=== PATIENT | male | born 1975 | race Caucasian/White ===

== ENCOUNTER 2020-01-11 08:33 | Outpatient (NON) | payer OTHER, SELFPAY ==
[2020-01-11 14:32] LABS: Influenza Control Positive
== END 2020-01-11 08:34 ==
LOC: ANHCOVIDDT 08:34
PROVIDERS: PCP Family Medicine; Visit Provider Nurse Practitioner Family
DX: J06.9 Acute upper respiratory infection, unspecified (principal); Z20.828 Contact with and (suspected) exposure to other viral communicable diseases
CPT/HCPCS: 87804

== ENCOUNTER 2020-01-11 12:53 | Outpatient (CLI) | payer OTHER, SELFPAY ==
--- NOTE | ~2020-01-11 | XR_ITS ---
EXAMINATION: XR chest 2V EXAM DATE: 01/11/2020 13:20 INDICATION: Cough, chills, congestion. Shortness of breath. History asthma. TECHNIQUE: Frontal and lateral projections of the chest obtained and reviewed. Comparison is made to prior examination from 04/07/2018. FINDINGS: The lungs are clear. There are no pleural effusions. The cardiomediastinal silhouette is within normal limits. There is no pneumothorax suspected. The bones and soft tissues are unremarkab le. IMPRESSION: No acute cardiopulmonary findings. Reviewed, dictated and finalized at location A. IO PRODUCER
== END 2020-01-11 12:54 | disposition home or self-care (01) ==
LOC: ANHIMG 12:58
PROVIDERS: PCP Family Medicine; Visit Provider Nurse Practitioner Family
DX: R05 Cough (principal); J06.9 Acute upper respiratory infection, unspecified
CPT/HCPCS: 71046

== ENCOUNTER 2020-03-26 11:18 | Emergency (ER) | payer BC, SELFPAY ==
--- NOTE | 2020-03-26 11:21 | ED.EXTPRO ---
HPI - Extremity Problem General Chief complaint: Extremity Problem,Nontraumatic Stated complaint: L FOOT PAIN Source: patient and RN notes reviewed Mode of arrival: ambulatory Limitations: no limitations History of Present Illness MD Complaint: extremity pain Related Data Home Medications Medication Instructions Recorded Confirmed bupropion HCl 150 mg 24 hr tablet, 150 mg PO QAM 01/10/20 01/10/20 extended release vortioxetine 20 mg tablet 20 mg PO DAILY 01/10/20 01/10/20 Allergies Allergy/AdvReac Type Severity Reaction Status Date / Time No Known Allergies Allergy Verified 01/10/20 13:40 Review of Systems Review of Systems: Narrative: CONSTITUTIONAL: Denies malaise, chills, sweats, or fever. EYES: Denies visual changes, redness, or discharge. ENT: Denies rhinorrhea, congestion, sinus pain, otalgia or sore throat. CARDIOVASCULAR: Denies chest pain, palpitations, or edema. RESPIRATORY: Denies cough or dyspnea. GASTROINTESTINAL: Denies abdominal pain, nausea, vomiting, diarrhea, bloody, or mucous stools. GENITOURINARY: Denies dysuria or hematuria. SKIN: Denies rash or itching. MUSCULOSKELETAL: Denies back pain, joint pain, or myalgia. NEUROLOGIC: Denies numbness, weakness, or headache. PSYCHIATRIC: Denies anxiety or depression. All systems reviewed & are unremarkable except as noted in HPI and below PMFSH Family History Family History Mother Hypertension Diabetes mellitus Arthritis Asthma Skin cancer Father Cerebrovascular accident Heart disease Grandparent Family history of malignant neoplasm Sibling Cerebrovascular accident Diabetes mellitus Social History Social History Smoking status: Never smoker Alcohol intake: current Comments At time of signature, agree with nursing past medical, surgical, social and family history. There is no relevant family history pertinent to the presenting complaint Exam Narrative: Exam Narrative: GENERAL: Well-appearing, well-nourished, and in no acute distress. HEAD: Normocephalic, atraumatic. EYES: PERRLA, conjunctivae clear NECK: Supple. CHEST: Speaks in full sentences. No respiratory distress. HEART: Regular rate and rhythm. Normal and equal peripheral pulses. EXTREMITIES: [Xxx] has normal strength and sensation, normal range of motion. No edema or ecchymosis. 5/5 strength with [xxx] flexion and extension. Normal sensation with sensitivity to light touch and pain. No point tenderness. No open wounds, no skin tenting, no devitalized tissue or atrophy, no trophic changes, no obvious deformity, alignment normal, nearby joints and structures intact. Distal pulses palpable and equal bilaterally, skin warm, dry, pink. Capillary refill less than 3 seconds. SKIN: Warm, dry, no rash. NEURO: Alert and oriented x3. PSYCH: Normal mood and affect Course Course Emergency Course: Patient is aware of diagnosis, understands and agrees to treatment plan. Anticipatory guidance given. Patient agrees to follow-up as directed and is aware of reasons to seek care at the emergency department. Portions of this record may have been created with voice recognition software Vital Signs Vital signs: Reviewed. MDM - Extremity (Nontraumatic) MDM Narrative Medical decision making narrative: Patients pain is consistent with musculoskeletal etiology. No signs of neurological or vascular compromise on exam. Compartments and tissues are soft without signs of compartment syndrome. Pain is felt appropriate for further evaluation on an outpatient basis. Critical Care Time Critical Care Time Critical Care Time: No Discharge Plan Discharge Prescriptions: No Action Trintellix 20 mg tablet 20 mg PO DAILY RF: 0 bupropion HCl [Wellbutrin XL] 150 mg tablet extended release 24 hr 150 mg PO QAM RF: 0 azithromycin 250 mg tablet See Rx Instructio
== END 2020-03-26 11:20 | disposition left against medical advice (07) ==
LOC: EXPGLEN 11:28
PROVIDERS: Emergency Provider Nurse Practitioner
DX: Z53.21 Procedure and treatment not carried out due to patient leaving prior to being seen by health care provider (principal)
CPT/HCPCS: 99199

== ENCOUNTER → 2020-06-04 10:28 | Outpatient (CLI) | payer BC, SELFPAY ==
[2020-06-04 18:21] LABS: SARS-CoV-2 RNA PCR Negative
== END ==
PROVIDERS: PCP Family Medicine; Visit Provider Nurse Practitioner Family
DX: R68.89 Other general symptoms and signs (principal); Z20.822 Contact with and (suspected) exposure to COVID-19
CPT/HCPCS: C9803; U0003; U0005

== ENCOUNTER → 2021-02-17 01:12 | Outpatient (CLI) | payer OTHER, SELFPAY ==
[2021-02-17 21:03] LABS: SARS-CoV-2 RNA PCR Positive
== END ==
PROVIDERS: PCP Family Medicine; Visit Provider Physician Assistant Medical
DX: U07.1 COVID-19 (principal)
CPT/HCPCS: C9803; U0003; U0005

== ENCOUNTER 2024-06-29 22:53 | Emergency (ER) | payer OTHER, SELFPAY ==
[2024-06-29] VITALS (9 sets, daily range): BP systolic 97–137; BP diastolic 61–77; PULSE 67–79; RESP 15–26; TEMP 36.5; O2SAT 96–99
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
--- OUTSIDE RECORDS SUMMARY | 2024-06-29 22:56 | XMS_ITS | Patient Health Record ---
Author Organization [facility]ly [facility] Address [address] [place] [address] Care Team Providers Care Child Psychiatrist Name Role Phone Heron Rabago Primary Care Provider [phone] Allergies No Known Allergies Reason For Referral No Information Medications Medication SIG (Take, Route, Frequency, Duration) Notes Start Date End Date Status Citalopram Hydrobromide 40 MG 1 tablet Orally Once a day for 90 days 03/20/2024 Active buPROPion HCl ER (XL) 300 MG 1 tablet in the morning Acti ve Social History Tobacco Use: Social History Observation Description Date Details (start date - stop date) Never Smoker NA - NA Dont use, Tobacco Use/Smoking Question Answer Notes Are you a nonsmoker Tobacco Control (Standard) Question Answer Notes Tobacco use: Nonsmoker Problems Problem Type SNOMED Code ICD Code Onset Dates Problem Status W/U Status Risk Notes Problem Generalized anxiety disorder (22379797) MABLE (generalized anxiety disorder) (F41.1) Active confirmed Problem Major depression single episode, in partial remission (78106525) Major depressive disorder in partial remission (F32.4) Active confirmed Mostly resolved now Problem Single episode of major depression in full remission (19865546) Major depressive disorder in full remission (F32.5) Active confirmed Problem 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 Encounters Encounter Location Date Provider Diagnosis [address] [place] [address] 09/12/2023 Heron Rabago Shift work sleep disorder G47.26 and Major depressive disorder in full remission F32.[address] [place] [address] 03/20/2024 Herondesiree Rabago Major depressive disorder in full remission F32.5 and Shift work sleep disorder G47.[address] [place] [address] 04/17/2024 Herondesiree Rabago Major depressive disorder in full remission F32.5 and Shift work sleep disorder G47.26 Assessments Encounter Date Diagnosis (ICD Code) Assessment Notes Treatment Notes Treatment Clinical Notes Section Notes 09/12/2023 Major depressive disorder in full remission (ICD-10 - F32.5) Client doing well, no treatment plan changes needed. 09/12/2023 Shift work sleep disorder (ICD-10 - G47.26) Client doing well, no treatment plan changes needed. 03/20/2024 Major depressive disorder in full remission (ICD-10 - F32.5) Encouraged client to seek out therapy - given resources for private therapy. Client having a lot of anxiety around dating again. States he feels it is out of porprotion to where it should be. The option of adding a medication to be taken as needed for anxiety, particularly in social situations like dating was discussed. Client would like to increase Lexapro, however Bo is already at 20 mg. Discussed changing Lexapro to Celexa to see if more effective for client. Client is agreeable. Client to f/u in a month. If anxiety is still problematic with ruminations after engaging in therapy and change to Celexa, would consider add on anxiety medication. 04/17/2024 Major depressive disorder in full remission (ICD-10 - F32.5) 04/17/2024 Shift work sleep disorder (ICD-10 - G47.26) 03/20/2024 Shift work sleep disorder (ICD-10 - G47.26) Encouraged client to seek out therapy - given resources for private therapy. Client having a lot of anxiety around dating again. States he feels it is out of porprotion to where it should be. The option of adding a medication to be taken as needed for anxiety, particularly in social situations like dating was discussed. Client would like to increase Lexapro, however Bo is already at 20 mg. Discussed changing Lexapro to Celexa to see if more effective for client. Client is agreeable. Client to f/u in a month. If anxiety is still problematic with ruminations after engaging in therapy and change to Celexa, would consider add on anxiety medication. 09/12/2023 Other Discussed sleep hygiene and caffeine intake with encouragement to limit electronic devices an hour before bed and to limit caffeine after 3:00pm. Exercise benefits for mood and health discussed. Psychoeducation regarding psychiatric illness provided. Client was educated about risks and benefits of medication, alternatives to medication, off label uses of medication, suicidal ideation with SSRIs, self-administrati on and compliance with medication along with how to safely store medication. Verbal informed consent obtained. Client agrees to return sooner if symptoms worsen or if suicidal or homicidal ideations occur. Client has the phone number to the 24-hour crisis line at [facility]. Questions addressed. Client verbalized understanding of all information and is agreeable to treatment plan. Client doing well, no treatment plan changes needed. 03/20/2024 Other Discussed sleep hygiene and caffeine intake with encouragement to limit electronic devices an hour before bed and to limit caffeine after 3:00pm. Exercise benefits for mood and health discussed. Psychoeducation regarding psychiatric illness provided. Client was educated about risks and benefits of medication, alternatives to medication, off label uses of medication, suicidal ideation with SSRIs, self-administrati on and compliance with medication along with how to safely store medication. Verbal informed consent obtained. Client agrees to return sooner if symptoms worsen or if suicidal or homicidal ideations occur. Client has the phone number to the 24-hour crisis line at [facility]. Questions addressed. Client verbalized understanding of all information and is agreeable to treatment plan. Encouraged client to seek out therapy - given resources for private therapy. Client having a lot of anxiety around dating again. States he feels it is out of porprotion to where it should be. The option of adding a medication to be taken as needed for anxiety, particularly in social situations like dating was discussed. Client would like to increase Lexapro, however Bo is already at 20 mg. Discussed changing Lexapro to Celexa to see if more effective for client. Client is agreeable. Client to f/u in a month. If anxiety is still problematic with ruminations after engaging in therapy and change to Celexa, would consider add on anxiety medication. 04/17/2024 Other Discussed sleep hygiene and caffeine intake with encouragement to limit electronic devices an hour before bed and to limit caffeine after 3:00pm. Exercise benefits for mood and health discussed. Psychoeducation regarding psychiatric illness provided. Client was educated about risks and benefits of medication, alternatives to medication, off label uses of medication, suicidal ideation with SSRIs, self-administrati on and compliance with medication along with how to safely store medication. Verbal informed consent obtained. Client agrees to return sooner if symptoms worsen or if suicidal or homicidal ideations occur. Client has the phone number to the 24-hour crisis line at [facility]. Questions addressed. Client verbalized understanding of all information and is agreeable to treatment plan. Plan Of Treatment No Information Insurance Providers Payer Name Payer Address Payer Phone Subscriber Number Group Number Insured Name Patient Relationship to Insured Coverage Start Date Coverage End Date [facility] [address] [place] [address] [id number] Bo Martinez Self - patient is the insured 3 Medical (General) History Surgical History Surgery Date(Month/Year) Foot (left) Hospitalization History Reason Date(Month/Year) MH ([facility]) Asthma
--- OUTSIDE RECORDS SUMMARY | 2024-06-29 23:54 | XMS_ITS | Patient Health Record ---
Author Organization [facility] Address [address] [place] [address] Care Team Providers Care Four Slide Machine Setter Name Role Phone Heron Rabago Primary Care Provider [phone] Allergies No Known Allergies Reason For [...] Status Risk Notes Problem Generalized anxiety disorder (16856395) MABLE (generalized anxiety disorder) (F41.1) Active confirmed Problem Major depression single episode, in partial remission (44792228) Major depressive disorder in partial remission (F32.4) Active confirmed Mostly resolved now Problem Single episode of major depression in full remission (26790820) Major depressive disorder in full remission (F32.5) Active confirmed Problem Circadian rhythm sleep disorder of shift work type (899636764) 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 Questions addressed. Client verbalized understanding of all [...] number to the 24-hour crisis line at [facility]. Questions addressed. Client verbalized understanding of all [...] number to the 24-hour crisis line at [facility]. Questions addressed. Client verbalized understanding of all information and is agreeable to treatment plan. Plan Of Treatment No Information Insurance Providers Payer Name Payer Address Payer Phone Subscriber Number Group Number Insured Name Patient Relationship to Insured Coverage Start Date Coverage End Date [facility] [address] [place] [address] [id number] Bo Martinez Self - patient is the insured 3 Medical (General) History Surgical History Surgery Date(Month/Year) Foot (left) Hospitalization History Reason Date(Month/Year) MH ([facility]) Asthma
[2024-06-30] VITALS (32 sets, daily range): BP systolic 109–126; BP diastolic 67–86; PULSE 60–81; RESP 12–27; O2SAT 94–100
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
[2024-06-30] MEDS: SODIUM CHLORIDE 0.9% IV 1,000 ML 999 ML IV CONT (00:24)
[2024-06-30 00:25] LABS: Basophils Absolute Auto 0.1 K/mm3 (0.0-0.1); Basophils Percent Auto 0.6 % (0.2-1.2); Eosinophils Absolute Auto 0.1 K/mm3 (0-0.3); Eosinophils Percent Auto 1.3 % (0-4.4); Hematocrit 32.3 % (42.0-52.0); Immature Granulocyte Absolute 0.06 K/mm3 (0.00-0.031); Immature Granulocyte Percent A 0.6 % (0-0.5); Lymphocytes Percent Auto 7.5 % (18.3-44.2); Mean Corpuscular HGB Conc 34.1 g/dl (32-36); Mean Corpuscular Hemoglobin 31.5 pg (26-34); Mean Corpuscular Volume 92.6 fl (80-100); Mean Platelet Volume 9.7 fl (7.4-10.4); Monocytes Absolute Auto 0.6 K/mm3 (0.1-0.6); Monocytes Percent Auto 5.8 % (2.6-8.5); Neutrophils Percent Auto 84.2 % (45.5-73.1); Platelet Count Result 217 k/mm3 (150-375); Red Blood Count 3.49 M/mm3 (4.6-6.20); Red Cell Distribution Width 13.3 % (11.5-14.5); White Blood Count 10.6 K/mm3 (4.5-10.0)
[2024-06-30] MEDS: TETANUS,DIPHTHERIA,AC PERTUSSIS ADULT (0.5 ML) BOOSTRIX IM (00:25)
[2024-06-30] MEDS: fentaNYL CITRATE INJ (*CRX) 100 MCG/2 ML VIAL 50 MCG IV PUSH (00:26)
[2024-06-30 00:35] LABS: Lactic Acid Reflex 1.3 mmol/L (0.7-2.0)
[2024-06-30 00:36] LABS: Alanine Aminotransferase 28 U/L (6-50); Albumin Level 3.5 g/dL (3.5-5.1); Alkaline Phosphatase 57 U/L (38-126); Anion Gap 6 mmol/L (4-12); Aspartate Amino Transferase 29 U/L (17-59); Bilirubin,Total 0.2 mg/dL (0.2-1.3); Blood Urea Nitrogen 20 mg/dL (9-20); Calcium 8.2 mg/dL (8.4-10.2); Carbon Dioxide 26 mmol/L (22-30); Chloride 103 mmol/L (98-107); Estimated CRCL calculation 120 ml/min; Estimated Glomerular Filt Rate > 60; Glucose 153 mg/dL (65-110); INR 1.1; Potassium 3.5 mmol/L (3.4-5.0); Prothrombin Time 14.6 Seconds (11.1-14.7); Sodium 135 mmol/L (137-145)
[2024-06-30 00:37] LABS: Partial Thromboplastin Time 23.8 Seconds (22.3-36.8)
[2024-06-30] MEDS: HYDROmorphone HCL INJ (*CRX) 2 MG/ML VIAL 0.5 MG IV PUSH (01:55)
[2024-06-30] MEDS: NACL 0.9% IRRIGATION POUR BOTTLE 500 ML ×2 (03:02)
[2024-06-30] MEDS: BACITRACIN OINTMENT 15 GM TUBE 1 APPLIC (03:02)
[2024-06-30] MEDS: LIDOCAINE 5% PATCH 1 PATCH TRANSDERM (04:12)
[2024-06-30 04:31] LABS: Add Urine Microscopic? NO; Appearance Urine Clear (Clear); Bilirubin Urine Negative (Negative); Blood Urine Negative (Negative); Color Urine Yellow (Yellow); Glucose Urine UA Negative (Negative); Ketones Urine Negative (Negative); Leukocyte Esterase Ur Negative LEU/UL (Negative); Nitrate Urine Negative (Negative); Protein Urine Negative (Negative); Specific Grav Ur > 1.045 (1.001-1.035); pH Urine 5.5 (5.0-9.0)
[2024-06-30 04:47] LABS: Amphetamine Screen Urine Negative (Negative); Barbiturate Screen Urine Negative (Negative); Benzodiazepines Screen Urine Negative (Negative); Cannabinoid Screen Urine Negative (Negative); Cocaine Screen Urine Negative (Negative); Methadone Screen Urine Negative (Negative); Opiate Screen Urine Negative (Negative); Phencyclidine Screen Urine Negative (Negative)
[2024-06-30] MEDS: KETOROLAC 30 MG/ML VIAL (*BKC) 15 MG IM (05:30)
[2024-06-30] MEDS: ACETAMINOPHEN 500 MG TABLET 1000 MG PO (05:30)
== END 2024-06-30 05:53 | disposition home or self-care (01) ==
PROVIDERS: Emergency Provider Student in an Organized Health Care Education/Training Program; PCP Family Medicine
DX: S22.31XA Fracture of one rib, right side, initial encounter for closed fracture (principal); S70.11XA Contusion of right thigh, initial encounter; S60.512A Abrasion of left hand, initial encounter; S60.511A Abrasion of right hand, initial encounter; S80.212A Abrasion, left knee, initial encounter; S80.211A Abrasion, right knee, initial encounter; S90.511A Abrasion, right ankle, initial encounter; D64.9 Anemia, unspecified; Z23 Encounter for immunization; Z79.899 Other long term (current) drug therapy; V28.49XA Other motorcycle driver injured in noncollision transport accident in traffic accident, initial encounter
CPT/HCPCS: 36415; 70450; 71045; 71260; 72125; 72170; 73030; 73120; 73552; 73560; 73600; 73706; 74177; 80053; 80307; 81003; 83605; 85025; 85610; 85730; 90471; 90715; 96361; 96372; 96374; 96375; 99284; A9270; J1171; J1885; J3010; J7030; Q9967

== ENCOUNTER 2024-07-10 11:20 | Outpatient (CLI) | payer OTHER, SELFPAY ==
--- NOTE | ~2024-07-10 | US_ITS ---
EXAMINATION:US venous doppler LE BI INDICATION:Leg swelling TECHNIQUE: Multiple grayscale, color flow and Doppler images of the right and left lower extremity de ep venous systems were obtained and reviewed. COMPARISON:No prior studies for comparison. FINDINGS: The common femoral, superficial femoral and popliteal veins demonstrate normal respiratory variation, augmentation and compressibility. Color flow is also seen within the posterior tibial, pe roneal, greater saphenous and profunda veins. IMPRESSION: 1: No lower extremity deep venous thrombosis. Reviewed, dictated and finalized at location A.
--- OUTSIDE RECORDS SUMMARY | 2024-07-10 11:33 | XMS_ITS | Patient Health Record ---
Author Organization [facility] Address [address] [place] [address] Care Team Providers Care Forming Process Worker Name Role Phone Heron Rabago Primary Care Provider [phone] Allergies No Known Allergies Reason For [...] Status Risk Notes Problem Generalized anxiety disorder (85199395) MABLE (generalized anxiety disorder) (F41.1) Active confirmed Problem Major depression single episode, in partial remission (84424590) Major depressive disorder in partial remission (F32.4) Active confirmed Mostly resolved now Problem Single episode of major depression in full remission (94199369) Major depressive disorder in full remission (F32.5) Active confirmed Problem 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 Questions addressed. Client verbalized understanding of all [...] number to the 24-hour crisis line at [facility]. Questions addressed. Client verbalized understanding of all [...] number to the 24-hour crisis line at [facility]. Questions addressed. Client verbalized understanding of all information and is agreeable to treatment plan. Plan Of Treatment No Information Insurance Providers Payer Name Payer Address Payer Phone Subscriber Number Group Number Insured Name Patient Relationship to Insured Coverage Start Date Coverage End Date [facility] [address] [place] [address] [id number] Bo Martinez Self - patient is the insured 3 Medical (General) History Surgical History Surgery Date(Month/Year) Foot (left) Hospitalization History Reason Date(Month/Year) MH ([place]) Asthma
== END 2024-07-10 11:21 | disposition home or self-care (01) ==
PROVIDERS: PCP Family Medicine; Visit Provider Nurse Practitioner Family
DX: M79.89 Other specified soft tissue disorders (principal)
CPT/HCPCS: 93970

== ENCOUNTER 2024-07-11 09:40 | Outpatient (CLI) | payer OTHER, SELFPAY ==
--- NOTE | ~2024-07-11 | XR_ITS ---
Right ankle Technique: AP, oblique, and lateral views were obtained. Clinical History: Effusion Findings: No acute fracture or dislocation is seen. Osseous alignment is anatomic. Ankle mortise and other visualized joint spaces are preserved. Soft tissues are otherwise unremarkable. Impression: Unremarkable right ankle. Reviewed, dictated and finalized at location . Impression: Unremarkable right ankle.
--- OUTSIDE RECORDS SUMMARY | 2024-07-11 09:51 | XMS_ITS | Patient Health Record ---
Author Organization [facility] Address [address] [place] [address] Care Team Providers Care Journeyman Lineman Name Role Phone Heron Rabago Primary Care Provider Allergies No Known Allergies Reason For Referral [...] Status Risk Notes Problem Generalized anxiety disorder (05754999) MABLE (generalized anxiety disorder) (F41.1) Active confirmed Problem Major depression single episode, in partial remission (15748291) Major depressive disorder in partial remission (F32.4) Active confirmed Mostly resolved now Problem Single episode of major depression in full remission (33109624) Major depressive disorder in full remission (F32.5) Active confirmed Problem Circadian rhythm sleep disorder of shift work type (113356600) 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 Questions addressed. Client verbalized understanding of all [...] number to the 24-hour crisis line at [facility]. Questions addressed. Client verbalized understanding of all [...] number to the 24-hour crisis line at [facility]. Questions addressed. Client verbalized understanding of all information and is agreeable to treatment plan. Plan Of Treatment No Information Insurance Providers Payer Name Payer Address Payer Phone Subscriber Number Group Number Insured Name Patient Relationship to Insured Coverage Start Date Coverage End Date [facility] [address] [place] [address] [id number] Bo Martinez Self - patient is the insured 3 Medical (General) History Surgical History Surgery Date(Month/Year) Foot (left) Hospitalization History Reason Date(Month/Year) MH ([facility]) Asthma
== END 2024-07-11 09:41 | disposition home or self-care (01) ==
PROVIDERS: PCP Family Medicine; Visit Provider Nurse Practitioner Family
DX: M25.471 Effusion, right ankle (principal)
CPT/HCPCS: 73610

== ENCOUNTER 2024-09-25 12:43 | Outpatient (CLI) | payer OTHER, SELFPAY ==
--- OUTSIDE RECORDS SUMMARY | 2024-09-25 12:51 | XMS_ITS | Patient Health Record ---
Author Organization [facility] Address [address] [place] [address] Care Team Providers Care Back Sizer Name Role Phone Heron Rabago Primary Care Provider Allergies No Known Allergies Reason For Referral No Information Medications Medication SIG (Take, Route, Frequency, Duration) Notes Start Date End Date Status Citalopram Hydrobromide 40 MG TAKE 1 TABLET BY MOUTH DAILY; Duration: 90 Active buPROPion HCl ER (XL) 300 MG 1 tablet in the morning; Duration: 90 days Active Social History Tobacco Use: Social History Observation Description Date Details (start date - stop date) Never Smoker NA - NA Dont use, Tobacco Use/Smoking Question Answer Notes Are you a nonsmoker Tobacco Control (Standard) Question Answer Notes Tobacco use: Nonsmoker Problems Problem Type SNOMED Code ICD Code Onset Dates Problem Status W/U Status Risk Notes Problem Generalized anxiety disorder (71181959) MABLE (generalized anxiety disorder) (F41.1) Active confirmed Problem Major depression single episode, in partial remission (87519322) Major depressive disorder in partial remission (F32.4) Active confirmed Mostly resolved now Problem Single episode of major depression in full remission (71202982) Major depressive disorder in full remission (F32.5) Active confirmed Problem Circadian rhythm sleep disorder of shift work type (647562060) 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 Encounters Encounter Location Date Provider Diagnosis [address] [place] [address] 03/20/2024 Heron Rabago Major depressive disorder in full remission F32.5 and Shift work sleep disorder G47.[address] [facility] [place] [address] 04/17/2024 Heron Rabago Major depressive disorder in full remission F32.5 and Shift work sleep disorder G47.[address] [place] [address] 07/24/2024 Heron Rabago Shift work sleep disorder G47.26 and Major depressive disorder in full remission F32.5 Assessments Encounter Date Diagnosis (ICD Code) Assessment Notes Treatment Notes Treatment Clinical Notes Section Notes 03/20/2024 Major depressive disorder in full remission [...] disorder in full remission (ICD-10 - F32.5) 07/24/2024 Major depressive disorder in full remission (ICD-10 - F32.5) 07/24/2024 Shift work sleep disorder (ICD-10 - G47.26) 04/17/2024 Shift work sleep disorder (ICD-10 - [...] Celexa, would consider add on anxiety medication. 03/20/2024 Other Discussed sleep hygiene and caffeine [...] number to the 24-hour crisis line at [facility]. Questions addressed. Client verbalized understanding of [...] number to the 24-hour crisis line at [facility]. Questions addressed. Client verbalized understanding of all information and is agreeable to treatment plan. 07/24/2024 Other Discussed sleep hygiene and caffeine intake [...] number to the 24-hour crisis line at [facility]. Questions addressed. Client verbalized understanding of all information and is agreeable to treatment plan. Plan Of Treatment No Information Insurance Providers Payer Name Payer Address Payer Phone Subscriber Number Group Number Insured Name Patient Relationship to Insured Coverage Start Date Coverage End Date [facility] [address] [place] [address] [id number] Bo Martinez Self - patient is the insured 3 Medical (General) History Surgical History Surgery Date(Month/Year) Foot (left) Hospitalization History Reason Date(Month/Year) Asthma MH ([place])
[2024-09-25 12:59] LABS: Hematocrit 44.0 % (42.0-52.0); Hemoglobin 14.3 g/dL (14.0-18.0); Immature Granulocyte Percent A 0.4 % (0-0.5); Lymphocytes Absolute Auto 1.29 K/mm3 (0.9-3.2); Mean Corpuscular HGB Conc 32.5 g/dl (32-36); Mean Corpuscular Hemoglobin 30.1 pg (26-34); Mean Corpuscular Volume 92.6 fl (80-100); Nucleated Red Blood Cells Absolute Auto 0.000 K/mm3 (0.0-0.012); Nucleated Red Blood Cells Perc 0.0 % (0.0-0.2); Platelet Count Result 239 k/mm3 (150-375); Red Blood Count 4.75 M/mm3 (4.6-6.20); White Blood Count 5.4 K/mm3 (4.5-10.0)
[2024-09-25 15:08] LABS: Anion Gap 6 mmol/L (4-12); Blood Urea Nitrogen 22 mg/dL (9-20); Calcium 9.1 mg/dL (8.4-10.2); Carbon Dioxide 29 mmol/L (22-30); Chloride 104 mmol/L (98-107); Cholesterol 174 mg/dL (0-200); Estimated Glomerular Filt Rate > 60; Glucose 102 mg/dL (65-110); HDL Direct 39 mg/dL; Potassium 4.5 mmol/L (3.4-5.0); Sodium 139 mmol/L (137-145); Triglycerides 93 mg/dL (<150)
[2024-09-25 15:44] LABS: Prostate Specific Antigen 1.2 ng/mL (< OR = 4.0)
[2024-09-25 16:20] LABS: Iron 106 ug/dL (49-181)
[2024-09-25 16:31] LABS: Percent Iron Saturation 35 % (20-50)
== END 2024-09-25 12:44 | disposition home or self-care (01) ==
LOC: ANHLAB 12:44
PROVIDERS: PCP Family Medicine; Visit Provider Physician Assistant Medical
DX: F34.1 Dysthymic disorder (principal); D64.9 Anemia, unspecified; E78.5 Hyperlipidemia, unspecified; Z12.5 Encounter for screening for malignant neoplasm of prostate
CPT/HCPCS: 36415; 80048; 80061; 83540; 83550; 84153; 85025; G0103

== ENCOUNTER 2024-12-25 11:12 | Outpatient (CLI) | payer OTHER, SELFPAY ==
[2024-12-25 12:07] LABS: Anion Gap 6 mmol/L (4-12); Blood Urea Nitrogen 17 mg/dL (9-20); Calcium 8.8 mg/dL (8.4-10.2); Carbon Dioxide 28 mmol/L (22-30); Chloride 105 mmol/L (98-107); Estimated Glomerular Filt Rate > 60; Glucose 100 mg/dL (65-110); Potassium 4.2 mmol/L (3.4-5.0); Sodium 139 mmol/L (137-145)
[2024-12-27 12:09] LABS: Free Testosterone (Direct) 10.6 pg/mL (7.2-24.0)
== END 2024-12-25 11:13 | disposition home or self-care (01) ==
LOC: ANHLAB 11:12
PROVIDERS: Nurse Practitioner Adult Health; PCP Family Medicine; Visit Provider Physician Assistant Medical
DX: N28.9 Disorder of kidney and ureter, unspecified (principal)
CPT/HCPCS: 36415; 80048; 84402; 84403